=== PATIENT | male | born 1930 | race Caucasian/White ===

== ENCOUNTER 2017-05-03 11:37 | Emergency (ER) | payer OTHER, MEDICAID ==
[~2017-05-03] VITALS: Ht 175.3 cm; Wt 81.2 kg
[2017-05-03] VITALS (7 sets, daily range): BP systolic 118–142; BP diastolic 57–93
[2017-05-03 13:18] LABS: INR 1.06 (0.9-1.15); Partial Thromboplastin Time 24.5 sec (22.64-33.71); Prothrombin Time 11.6 sec (9.37-12.3)
[2017-05-03 13:25] LABS: Albumin 2.9 g/dL (3.4-5.0); BUN/Creatinine Ratio 11.8; Bilirubin, Total 0.6 mg/dL (0.2-1.0); Calcium 8.2 mg/dL (8.5-10.1); Potassium 3.6 mmol/L (3.5-5.1); Total Protein 6.1 g/dL (6.4-8.2)
[2017-05-03 13:27] LABS: Basophils # (auto) 0 uL; Basophils % (auto) 0.5 % (0.0-2.0); CONDITION Y; DEFINITIVE SEE PRINTOUT; Eosinophils # (auto) 0.1 uL; Hematocrit 22.4 % (41.0-53.0); Hemoglobin 7.4 g/dL (13.5-17.5); Lymphocytes # (auto) 1.9 uL; Lymphocytes % (auto) 38.5 % (10.0-50.0); Mean Corpuscular Hemoglobin 29.1 pg (28.0-32.0); Mean Corpuscular Hgb Conc. 33.2 g/dL (32.0-36.0); Mean Corpuscular Volume 87.7 fL (80.0-100.0); Mean Platelet Volume 8.5 fL (7.4-10.4); Monocytes # (auto) 0.4 uL; Monocytes % (auto) 7.8 % (0.0-12.0); Neutrophils # (auto) 2.5 uL; Neutrophils % (auto) 51.2 % (37.0-80.0); Platelet Count (auto) 141 10^3/uL (140-450); Red Cell Distribution Width 14.8 % (11.6-16.0); White Blood Cell 4.8 10^3/uL (4.4-10.8)
[2017-05-03] MEDS ORDERED: SODIUM CHLORIDE 0.9% 1,000 ML IV ONE (15:16)
== END 2017-05-03 19:22 | disposition short-term general hospital (02) ==
LOC: ER 11:37
DX: K92.2 Gastrointestinal hemorrhage, unspecified (principal); K92.1 Melena; I10 Essential (primary) hypertension; F17.210 Nicotine dependence, cigarettes, uncomplicated
CPT/HCPCS: 36415; 71010; 80053; 85025; 85610; 85730; 86850; 86900; 86901; 86920; 93005; 99285; P9016; 36430

== ENCOUNTER 2018-08-20 10:15 | Emergency (ER) | payer OTHER, MEDICAID ==
[~2018-08-20] VITALS: Ht 177.8 cm; Wt 81.6 kg
[2018-08-20 10:38] VITALS: BP 119/74
[2018-08-20 11:53] LABS: Urine Bacteria NONE SEEN /hpf (None Seen); Urine Blood Negative /uL (Negative); Urine Mucus FEW (None Seen); Urine Specific Gravity 1.019 (1.001-1.035); Urine WBC 3 /hpf (0 - 3)
== END 2018-08-20 12:12 | disposition home or self-care (01) ==
LOC: ER 10:16
DX: B35.6 Tinea cruris (principal); I10 Essential (primary) hypertension; F17.210 Nicotine dependence, cigarettes, uncomplicated
CPT/HCPCS: 81001

== ENCOUNTER 2019-01-12 10:16 | Emergency (ER) | payer OTHER, MEDICAID ==
[~2019-01-12] VITALS: Ht 177.8 cm; Wt 82.6 kg
[2019-01-12 11:21] LABS: Basophils # (auto) 0 uL; Basophils % (auto) 0.4 % (0.0-2.0); Eosinophils # (auto) 0.1 uL; Eosinophils % (auto) 1.6 % (0.0-7.0); Hematocrit 35.8 % (41.0-53.0); Hemoglobin 11.9 g/dL (13.5-17.5); Lymphocytes # (auto) 1.2 uL; Lymphocytes % (auto) 22.5 % (10.0-50.0); Mean Corpuscular Hemoglobin 30.4 pg (28.0-32.0); Mean Corpuscular Hgb Conc. 33.1 g/dL (32.0-36.0); Mean Corpuscular Volume 91.8 fL (80.0-100.0); Monocytes # (auto) 0.6 uL; Monocytes % (auto) 11.3 % (0.0-12.0); Neutrophils # (auto) 3.3 uL; Neutrophils % (auto) 64.2 % (37.0-80.0); Nucleated Red Blood Cells % 0.1 %; Platelet Count (auto) 126 10^3/uL (140-450); Red Cell Distribution Width 13.9 % (11.8-14.3); White Blood Cell 5.2 10^3/uL (4.4-10.8)
[2019-01-12 11:39] LABS: Albumin 3.5 g/dL (3.4-5.0); BUN/Creatinine Ratio 11.4; Calcium 8.8 mg/dL (8.5-10.1); Potassium 3.9 mmol/L (3.5-5.1)
[2019-01-12 11:44] LABS: Total Protein 7.8 g/dL (6.4-8.2)
[2019-01-12 13:25] LABS: Partial Thromboplastin Time 28.8 sec (23.78-33.04); Prothrombin Time 10.7 sec (9.27-12.13)
[2019-01-12] MEDS ORDERED: LEVOTHYROXINE SODIUM 100 MCG/5 ML INJ IV ONE (14:00)
[2019-01-12] MEDS ORDERED: ENOXAPARIN SOD 60 MG/0.6 ML SYRINGE SC ONE (14:00)
[2019-01-12] MEDS ORDERED: cefTRIAXone 1GM/50ML D5W 50 ML IV ONE (14:00)
[2019-01-12] MEDS ORDERED: AZITHROMYCIN 500MG/ 250ML 250 ML IV ONE (15:00)
[2019-01-12 16:51] VITALS: BP 149/88
== END 2019-01-12 17:51 | disposition short-term general hospital (02) ==
LOC: ER 10:16
DX: J18.9 Pneumonia, unspecified organism (principal); E03.9 Hypothyroidism, unspecified; D69.6 Thrombocytopenia, unspecified; R79.89 Other specified abnormal findings of blood chemistry; I10 Essential (primary) hypertension; F17.210 Nicotine dependence, cigarettes, uncomplicated
CPT/HCPCS: 36415; 71046; 80053; 83880; 84443; 84484; 85025; 85379; 85610; 85730; 93005; 96365; 96366; 96368; 96372; 99285; J0456; J0696; J1650